=== PATIENT | female | born 1990 | race Caucasian/White ===

== ENCOUNTER 2020-10-25 15:00 | Outpatient (REF) | payer MEDICAID, SELFPAY | END 2020-10-25 15:01 | disposition home or self-care (01) | LOC: HO.LAB 15:00 | PROVIDERS: Visit Provider Nurse Practitioner Family | DX: R50.9 Fever, unspecified (principal); R10.9 Unspecified abdominal pain; Z20.822 Contact with and (suspected) exposure to COVID-19 | CPT/HCPCS: 36415; U0003; U0005 ==

== ENCOUNTER 2023-05-17 15:40 | Outpatient (AMB) | payer OTHER, SELFPAY ==
[2023-05-17 16:16] VITALS: BP 122/70; PULSE 103; TEMP 37.2; O2SAT 96; BMI 24.5
--- NOTE | 2023-05-17 16:16 | MHC.OFFWIV ---
Intake Vital Signs 05/17/23 16:16 Height 5 ft 9 in Weight 166 lb BMI 24.5 BP 122/70 Blood Pressure Location Rt brachial Position Sitting Pulse 103 H Pulse Source Pulse Oximeter Temp 99.0 F Temp Source Temporal Artery Scan Pulse Oximetry (%) 96 Oxygen Delivery Method Room Air Intake Visit Reasons: EP ?UTI Intake Note: pt is here for c/o possible uti Patient Tobacco Use Status: Never used Tobacco Allergies Sulfa (Sulfonamide Antibiotics) Allergy (Mild, Verified 05/17/23 16:16) mild Do you need a note to return to daycare/school/sports/work: Yes HPI HPI Comments History of Present Illness Details 33-year-old female who presents for concern of UTI/pyelonephritis. Patient was recently in the hospital for surgery for her jaw pain and found out that she had a positive urine culture for strep B. She is endorsing back painwell as GI distress in chills. Does have a history of IVDU but urinary incontinence or inability to have a bowel movement saddle anesthesia midline tenderness. PFSH Social History Patient Tobacco Use Status: Never used Tobacco Review of Systems [facility] [place] pain Physical Exam Vital Signs: Last Vital Signs Temp 99.0 F 05/17/23 16:16 Pulse 103 H 05/17/23 16:16 BP 122/70 05/17/23 16:16 Pulse Ox 96 05/17/23 16:16 Oxygen Delivery Method Room Air 05/17/23 16:16 BMI result Body Mass Index 24.5 Const General: healthy appearing, comfortable, no acute distress and alert Orientation/consciousness: patient oriented x3 Limitations: no limitations HEENT Head: Yes normal to inspection Ears: hearing grossly normal bilaterally Resp Effort & Inspection: normal respiratory effort and able to speak in complete sentences Cardio Rate: regular rate Back/Spine/Pelvis Other: Mild CVA tenderness Skin General skin exam: no rashes or lesions noted Neuro General: patient oriented x3 Extrem General: Yes normal to inspection Results AMB Urinalysis, Automated UA Leukoctes 0 Heather/uL Last Edit by Abraham Palmer CMA on 05/17/23 16:23 UA Nitrite Negative Last Edit by Abraham Palmer CMA on 05/17/23 16:23 UA Urobilinogen 0.2 mg/dL Last Edit by Abraham Palmer CMA on 05/17/23 16:23 UA Protein 15 mg/dL Last Edit by Abraham Palemr CMA on 05/17/23 16:23 UA pH 5.5 Last Edit by Abraham Palmer CMA on 05/17/23 16:23 UA Blood 25 Jamie/uL Last Edit by Abraham Palmer CMA on 05/17/23 16:23 UA Specific [place] 1.030 Last Edit by Abraham Palmer CMA on 05/17/23 16:23 UA Ketone Negative Last Edit by Abraham Palmer CMA on 05/17/23 16:23 UA Bilirubin 0 mg/dL Last Edit by Abraham Palmer CMA on 05/17/23 16:23 UA Glucose 0 mg/dL Last Edit by Abraham Palmer CMA on 05/17/23 16:23 Results Reviewed Results Reviewed: Laboratory Last Values Urine pH (Auto) 5.5 05/17/23 16:21 Specific [place] (Auto) 1.030 05/17/23 16:21 Urine Protein (Auto) 15 mg/dL 05/17/23 16:21 Glucose (UA)(Auto) 0 mg/dL 05/17/23 16:21 Urine Ketones (Auto) Negative 05/17/23 16:21 Urine Blood (Auto) 25 Jamie/uL 05/17/23 16:21 Urine Nitrite (Auto) Negative 05/17/23 16:21 Urine Bilirubin (Auto) 0 mg/dL 05/17/23 16:21 Urine Urobilinogen (Auto) 0.2 mg/dL 05/17/23 16:21 Leukocyte Esterase (Auto) 0 Heather/uL 05/17/23 16:21 Assessment & Plan Assessment & Plan (1) Flank pain: Code(s): R10.9 - Unspecified abdominal pain Plan: Given patient being days of concern is pyelonephritis analysis showed no white cells. However in the setting of group B positive urine culture with chills and flank tenderness wound. The treat for pyelonephritis. Low suspicion at this time for epidural abscess given no midline tenderness to palpation the other findings on examination. However strong recommendations were made to the patient that if symptoms worsen or change she should present to the emergency department for further evaluation Discharge instructions, follow up and treatment are discussed with patient in my usual fashion. Alternatives in treatment are also discussed. The patient will return for worsening symptoms or as needed. Advised that any labs/imaging ordered will be followed up on and contact made if further treatment needed. Counseled that patient's condition may require further evaluation and/or treatment. Symptoms of concern for worsening disorder discussed in detail in my customary manner. Patient does verbalize understanding of the plan, there are no apparent barriers to communication. The patient is given the opportunity to ask questions and have them answered to his/her satisfaction Orders: Orders AMB Urinalysis Automated Today Z13.9 - Encounter for screening, unspecified Medications: New cefpodoxime must administer with a meal/food 200 mg PO BID 10 days 20 tabs 0RF ibuprofen 800 mg PO Q8H PRN 30 tabs 0RF pain Coding Level of Care Code Est Pt Level 3 (20635) Diagnoses Flank pain R10.9
== END 2023-05-17 16:50 | disposition home or self-care (01) ==
PROVIDERS: PCP Nurse Practitioner Family; Visit Provider Physician Assistant
DX: R10.9 Unspecified abdominal pain (principal)
CPT/HCPCS: 81003; 99213

== ENCOUNTER 2024-08-19 10:32 | Inpatient (IN) | payer OTHER, SELFPAY ==
[2024-08-19 10:56] VITALS: BP 144/90; PULSE 74; RESP 20; TEMP 36.4; O2SAT 99; BMI 26.3
--- NOTE | 2024-08-19 11:09 | MHC.RECOVRN ---
T/w met with pt in the [facility] and escorted pt to the ED for assistance with alcohol withdrawl. Pt had presented to the [facility] as a walk in for assistance with ATS. Pt was referred to the [facility] from [facility]. Pt had presented to [facility] to attend their PHP program but was informed she needed to complete ATS prior to starting. Pt reports alcohol use, 20 nips bourbon daily x 1.5 weeks; cocaine use, last use last week. Pt reports recovery from opioids since May 19, 2016. Last alcohol use was this morning. Pt reports mental health diagnoses are bipolar disorder, PTSD, and ADHD. Pt has an emotional support animal that she would like to take to treatment with her. Pt would like to go to [facility], however, [facility] reports pt has left their facility AMA x 3 recently and can not return until November 2024. Pt open to [facility], however, [facility] has a waitlist. Upon further discussion, pt reports history of seizures and hypertension with alcohol withdrawal. Pt reports last seizure was 3 days ago. Discussed safety regarding alcohol withdrawal. Pt decided she would like to go to the ED with a goal of a medical admission for alcohol withdrawal. T/w escorted pt to ED check in.
[2024-08-19 11:53] LABS: Basophils Absolute Auto 0.1 X10*3/uL (0.0-0.2); Basophils Percent Auto 1.3 % (0-2); Eosinophils Absolute Auto 0.4 X10*3/uL (0.0-0.4); Eosinophils Percent Auto 6.1 % (0-4); Hematocrit 36.6 % (37.0-47.0); Hemoglobin 11.2 g/dl (12.0-16.0); Imm Gran Abs Auto 0.02 X10*3/uL (0.00-0.03); Imm Gran Pct Auto 0.3 % (0.0-0.4); Lymphocytes Absolute Auto 1.7 X10*3/uL (1.2-4.9); Lymphocytes Percent Auto 24.7 % (20-40); MANUAL DIFF FLAG NO; Mean Corpuscular HGB Conc 30.6 g/dl (31.0-35.0); Mean Corpuscular Hemoglobin 24.1 pg (27.0-33.0); Mean Corpuscular Volume 78.7 fL (80.0-98.0); Mean Platelet Volume 9.3 fL (9.4-12.3); Monocytes Absolute Auto 0.5 X10*3/uL (0.1-1.2); Monocytes Percent Auto 7.3 % (2-11); Neutrophils Absolute Auto 4.1 x10*3/uL (2.0-8.3); Neutrophils Percent Auto 60.3 % (45-73); Platelet Count 270 X10*3/uL (160-400); Red Blood Count 4.65 X10*6/uL (4.20-5.50); Red Cell Distribution Width 18.4 % (11.0-16.0); White Blood Count 6.7 X10*3/uL (4.8-10.8)
--- NOTE | 2024-08-19 12:15 | ED_ITS ---
HPI - General Adult General Chief complaint: ETOH/Substance Use Stated complaint: Alcohol withdrawal Time Seen by Provider: 08/19/24 11:57 Source: patient Mode of arrival: ambulatory Limitations: no limitations History of Present Illness ED Provider: DR. Montano HPI narrative: 34-year-old female history of alcohol use the patient drink every day, patient also is known to have history of withdrawal seizure, patient is trying to stop drinking alcohol had seizure 2 days ago, patient is afraid of developing another seizure so she drank alcohol this morning patient is really seeking detox and rehab. Patient smells orange before the seizure was able to put herself on the floor before the seizure and declined having any injury or fall after the seizure. Related Data Previous Rx's ?Medication ?Instructions ?Recorded cefpodoxime 200 mg tablet 200 mg PO BID 10 days #20 tabs 05/17/23 ibuprofen 800 mg tablet 800 mg PO Q8H PRN pain #30 tabs 05/17/23 Allergies Allergy/AdvReac Type Severity Reaction Status Date / Time Sulfa (Sulfonamide Allergy Mild mild Verified 08/19/24 10:58 Antibiotics) Review of Systems 2 Review of Systems: All other systems are reviewed and are negative Constitutional: Reports as per HPI and Reports no additional constitutional complaints Eyes: Reports as per HPI and Reports no additional eye complaints Reports system reviewed and no additional complaints, except as documented Cardiovascular: Reports as per HPI and Reports no additional cardiovascular complaints Respiratory: Reports as per HPI and Reports no additional respiratory complaints Gastrointestinal: Reports as per HPI and Reports no additional gastrointestinal complaints Genitourinary: Reports no additional female genitourinary complaints Musculoskeletal: Reports no additional musculoskeletal complaints Skin/Breast: Reports system reviewed and no additional complaints, except as docu Psychiatric: Reports no additional psychiatric complaints Endocrine: Reports no additional endocrine complaints Hematologic/Lymphatic: Reports no additional hematologic/lymphatic complaints Allergic/Immunologic: Reports no additional allergic/immunologic complaints Reports system reviewed and no additional complaints, except as documented and Reports Abnormal speech present [facility] Social History Social History Patient Tobacco Use Status: Never used Tobacco Advance Directives: No Advance Directives Information Provided: Yes Physical Exam ED Vital Signs: Vital Signs - 24 hr 08/19/24 10:56 Temperature 97.5 F Pulse Rate 74 Respiratory Rate 20 Blood Pressure 144/90 H Pulse Oximetry 99 Oxygen Delivery Method Room Air BMI result Body Mass Index 26.3 Vital signs have been reviewed and appear to be correct. Blood pressure elevated. Heart rate normal. Respiratory rate normal. Temperature normal. Oxygen saturation normal. Appearance: Alert. Oriented X3. No acute distress. Head: Normal external exam. Normocephalic. Atraumatic. No Llamas signs noted. No raccoon eyes noted Eyes: PERRLA. EOMI. Conjunctiva and sclera normal. Eyelids normal. ENT: TM's Normal. Pharynx normal. Uvula midline. Moist mucous membranes. No trismus noted. No drooling noted. No muffled voice noted. Neck: Normal inspection. Neck supple. FROM. No adenopathy. Thyroid Normal. No meningeal signs. No neck mass noted. CVS: Normal heart rate and rhythm. Heart sound normal. No murmurs noted. Pulses normal throughout. Respiratory: No respiratory distress. Painless inspiration. Breath sounds normal. No wheezes/rales/rhonchi noted. Chest nontender. No accessory muscle usage noted or decreased air movement noted. Abdomen: Soft and nontender. Bowel sounds normal in all 4 quadrants. No distention noted. No organomegaly noted. No visible injury noted. Back: No CVA tenderness. Full range of motion noted. Skin: Skin warm and dry. Normal skin color. Normal skin turgor. No rashes/lesions/lacerations noted. Extremities: No lower extremity edema. Extremities exhibit normal range of motion. Extremities nontender. Neuro: Oriented X 3. Cranial nerve exam: II-XII are grossly intact No motor deficit. No sensory deficit. Reflexes normal. Course Reevaluation(s) Reevaluation #1: 34-year-old female with a longstanding history of chronic alcohol use and alcoholic withdrawal seizure. Patient still seeking detox had to drink alcohol this morning to prevent seizure, will start the patient on phenobarb and admit for alcohol withdrawal. Time: 12:18 Medical Decision Making Differential Diagnosis Differential Diagnoses: The differential diagnosis associated with the presentation includes (Alcohol withdrawal seizure, electrolyte derangement, severe anemia.) Admission/Observation Consideration of admission/observation: Escalation of care including admission/observation considered Consult Healthcare Provider Management of the patient was discussed with: Hospitalist (Dr. Rock) Lab Data MDM Lab Attestation statement: I reviewed the patient's lab results. 08/19/24 11:46 08/19/24 11:46 Labs: Lab Results 08/19/24 Range/Units 11:46 WBC 6.7 (4.8-10.8) X10*3/uL RBC 4.65 (4.20-5.50) X10*6/uL Hgb 11.2 L (12.0-16.0) g/dl Hct 36.6 L (37.0-47.0) % MCV 78.7 L (80.0-98.0) fL MCH 24.1 L (27.0-33.0) pg MCHC 30.6 L (31.0-35.0) g/dl RDW 18.4 H (11.0-16.0) % Plt Count 270 (160-400) X10*3/uL MPV 9.3 L (9.4-12.3) fL Immature Gran % (Auto) 0.3 (0.0-0.4) % Neut % (Auto) 60.3 (45-73) % Lymph % (Auto) 24.7 (20-40) % [place] % (Auto) 7.3 (2-11) % Eos % (Auto) 6.1 H (0-4) % Baso % (Auto) 1.3 (0-2) % Lymph # (Auto) 1.7 (1.2-4.9) X10*3/uL [place] # (Auto) 0.5 (0.1-1.2) X10*3/uL Eos # (Auto) 0.4 (0.0-0.4) X10*3/uL Baso # (Auto) 0.1 (0.0-0.2) X10*3/uL Abs Immat Gran (auto) 0.02 (0.00-0.03) X10*3/uL Absolute Neuts (auto) 4.1 (2.0-8.3) x10*3/uL Absolute Nucleated RBC 0.000 (0.0-0.012) X10*3/uL Nucleated RBC % (auto) 0.0 (0.0-0.2) /100WBC Discharge Plan Discharge Clinical Impression: Alcohol withdrawal syndrome, Alcohol withdrawal seizure Patient Disposition: Admitted As Inpatient Prescriptions: No Action cefpodoxime 200 mg tablet 200 mg PO BID 10 Days Qty: 20 0RF Rx Instructions: must administer with a meal/food ibuprofen 800 mg tablet 800 mg PO Q8H PRN (Reason: pain) Qty: 30 0RF Print Language: Kiswahili
[2024-08-19 12:20] LABS: Alanine Aminotransferase 20 U/L (0-31); Albumin Level 4.2 g/dL (3.5-5.0); Alkaline Phosphatase 66 U/L (39-117); Anion Gap 11 (12-20); Aspartate Amino Transferase 37 U/L (5-31); Bilirubin Total 0.3 mg/dL (0.0-1.0); Blood Urea Nitrogen 10 mg/dL (9-16); Carbon Dioxide 29 mmol/L (22-29); Chloride 106 mmol/L (96-108); Creatinine Clr Calc Pharmacy 113.3; Estimated Glomerular Filt Rate > 60; Ethanol 153 mg/dL; Glucose Random 113 mg/dL (60-115); Potassium 4.9 mmol/L (3.3-5.1); Sodium 141 mmol/L (135-145); Total Protein 7.7 g/dL (6.5-8.0)
[2024-08-19 12:33] LABS: Appearance Urine Clear; Color Urine Yellow; Glucose Urine UA Negative (Negative); Leukocyte Esterase Urine Negative (Negative); Nitrite Urine Negative (Negative); Specific Gravity - Urine <= 1.005 (1.005-1.025); Urine Blood Negative (Negative); Urine Ketones Negative (Negative); Urine Protein Negative (Neg-Trace)
[2024-08-19 12:57] LABS: Lipase 48 U/L (8-78)
[2024-08-19 13:02] LABS: HCG Quantitative < 2 mIU/mL
--- NOTE | 2024-08-19 13:16 | PHA.MEDREC ---
Pharmacy Consult ? Medication Reconciliation Pharmacy has completed the medication reconciliation. Spoke to patient to confirm med list. Patient was able to tell me what medications she takes. Everything the patient said matched claims. patient states she uses and Albuteral HFA inhaler only as need, however didn't see a claim for it.
[2024-08-19] MEDS: PHENobarbitaL sodium 130 MG/ML IM ONCE 268 MG IM (13:22)
[2024-08-19 13:23] VITALS: BP 136/91; PULSE 83; RESP 20; O2SAT 97
[2024-08-19] MEDS: Lactated Ringers 1,000 ML 100 ML IVCONT (14:31)
[2024-08-19] MEDS: Enoxaparin Sodium 40 MG/0.4 ML SYRINGE SUBCUT (14:35)
--- NOTE | 2024-08-19 14:36 | P.HPHOSP_ITS ---
History of Present Illness Date of Service: 08/19/24 Attending physician on admission: Mandy Montes Chief Complaint: Alcohol withdrawal syndrome, with hx of seizures 34 yo female with past medical history of alcohol use disorder with a hx of withdrawal seizures. States that 3 days ago she had attempted to quit drinking cold turkey but experienced what she believes to be a seizure- states she felt different and lowered herself down and then suddenly she came to - she thinks it was under 5 minutes. She endorses having auras historically which vary including a metallic taste and a kaleidoscope-like visual. She reports her last drink was this 9am (3 nips of Rell Beam) which she took with a rx. clonidine pill prior to coming in to the ED. She comes to the ED with a plan to withdraw inpatient. States she has contacts within the community who are willing to support rehabilitation however she must be outside of the acute withdrawal phase and any chance of seizing from said withdrawal. She has been drinking since 2019, increasingly getting worse over the last 2 years. Reports she drinks 2 sleeves of nips (spirits) daily, as well as intermittent cocaine use when offered or available, and vapes tobacco. Denies auras at present, has a baseline tremor present no additional shaking is reported, denies N/V/D, headache, anxiety, or depression (is sick of having nothing to live for but alcohol and wants to stop). Review of Systems 2 Review of Systems: Reports possible weight gain. Denies fever, chills, N/V/D,changes to sleep. Eyes: Comments: Denies changes to vision at present ENT: Comments: Denies headache, changes to hearing, vertigo, congestion, rhinorrhea, or sore throat Cardiovascular: Comments: Denies palpitations, lightheadedness, diaphoresis, orthopnea, edema, or CP Respiratory: Comments: Denies cough, sputum, hemoptysis, dyspnea, wheeze, or pleuritic pain Gastrointestinal: Comments: Denies N/V/D, denies bowel changes, changes to appetite, and any bleeding Endorses chronic constipation Genitourinary: Comments: Denies any difficulties, frequency, urgency, retention, burning, or hematuria Endorses foul smell, and white discharge Musculoskeletal: Comments: Denies any recent falls, changes in gait Endorses chronic flank pain (when dehydrated) Integumentary/Breasts: Comments: Denies any rashes, itching, dryness, color changes, wounds Neurologic: Comments: Endorses seizures with withdrawal, slight baseline tremor Denies dizziness, syncope/fainting, numbness/tingling Psychiatric: Comments: Denies any changes or difficutlies with memory Endorses hx of anxiety/depression related to substance use (ETOH) Endocrine: Comments: Denies temperature intolerances, sweating, polyuria/dipsia, or bleeding PMFSH Social History Alcohol intake: current Alcohol intake frequency: 0-2 drinks per day Alcohol type: hard liquor Patient Tobacco Use Status: Never used Tobacco Smoked in Last 30 Days: Yes Use of substances other than those prescribed or required for medical reasons: Yes Substance Use Type: Crack/Cocaine Substance Use Frequency: Occasionally Advance Directives: No Advance Directives Information Provided: Yes Nutrition Risks: No Nutritional Risk Patient : No Meds Allergies Allergy/AdvReac Type Severity Reaction Status Date / Time Sulfa (Sulfonamide Allergy Mild mild Verified 08/19/24 10:58 Antibiotics) Active Medications: Current Medications Acetaminophen (Acetaminophen 325 Mg Tablet) 650 mg PO Q6H PRN PRN Reason: Pain, Mild 1-3,fever,headache Calcium Carbonate (Calcium Carbonate 750 Mg Tab.Chew) 750 mg PO Q4H PRN PRN Reason: Heartburn Enoxaparin Sodium (Enoxaparin Sodium 40 Mg/0.4 Ml Syringe) 40 mg SUBCUT Q24H [facility] Last Admin: 08/19/24 14:35 Dose: 40 mg Lactated Ringer's (Lr) 1,000 mls @ 100 mls/hr IVCONT .Q10H [facility] Last Admin: 08/19/24 14:31 Dose: 100 mls/hr Magnesium Hydroxide (Milk Of Magnesia 30 Ml Oral.Susp) 30 ml PO DAILY PRN PRN Reason: Constipation Melatonin (Melatonin 3 Mg Tablet) 6 mg PO BEDTIME PRN PRN Reason: Insomnia Nicotine Polacrilex (Nicotine Polacrilex 2 Mg Gum) 2 mg BUCCAL Q1H PRN PRN Reason: Nicotine Cravings Pharmacy Consult (Consult Rx Etoh Phenob Im/Po) 1 each MISCELLANE ONCE PRN; Protocol PRN Reason: Consult order Phenobarbital (Phenobarbital 15 Mg Tablet) 45 mg PO BID [facility]; Protocol Stop: 08/21/24 21:01 Phenobarbital (Phenobarbital 30 Mg Tablet) 30 mg PO BID [facility]; Protocol Stop: 08/23/24 21:01 Phenobarbital (Phenobarbital 30 Mg Tablet) 30 mg PO DAILY [facility]; Protocol Stop: 08/25/24 09:01 Phenobarbital Sodium (Phenobarbital Sodium 130 Mg/Ml Vial Im Q3hx2) 201 mg IM Q3H [facility]; Protocol Stop: 08/19/24 19:01 Sodium Chloride (0.9 % Sodium Chloride Flush 3 Ml Syringe) 3 ml IVFLUSH QSHIFT [facility] Home Medications ?Medication ?Instructions ?Recorded ?Confirmed ?Last Taken ?Type acetaminophen 325 mg tablet 650 mg PO Q6H PRN Pain 08/19/24 08/19/24 Unknown History albuterol sulfate 90 mcg/actuation 2 puff inhalation Q4-6H PRN 08/19/24 08/19/24 Unknown History aerosol inhaler Respiratory Distress ascorbic acid (vitamin C) 500 mg 500 mg PO DAILY 08/19/24 08/19/24 08/19/24 History tablet (Vitamin C) clonidine HCl 0.1 mg tablet 0.1 mg PO DAILY 08/19/24 08/19/24 08/19/24 History multivitamin 1 tab PO DAILY 08/19/24 08/19/24 08/19/24 History naltrexone 50 mg tablet 50 mg PO DAILY 08/19/24 08/19/24 08/19/24 History quetiapine 50 mg tablet 50 mg PO BEDTIME 08/19/24 08/19/24 08/18/24 History vitamin B complex 1 tab PO DAILY 08/19/24 08/19/24 08/19/24 History Physical Exam 2 Vital Signs and Narrative: Vital Signs: Last Vital Signs Temp 97.5 F 08/19/24 10:56 Pulse 83 08/19/24 13:23 Resp 20 08/19/24 13:23 BP 136/91 H 08/19/24 13:23 Pulse Ox 97 08/19/24 13:23 O2 Del Method Room Air 08/19/24 13:23 BMI result Body Mass Index 26.3 Const: General: cooperative, healthy appearing, comfortable, no acute distress, alert and awake Nutritional Appearance: overweight O rientation/consciousness: patient oriented x3 Limitations: no limitations HEENT: Head: Yes normal to inspection Ears: hearing grossly normal bilaterally General nose exam: Normal external nose present Face and sinus: Yes normal facial exam Eyes: General: appearance normal, both eyes and all related structures P upils: Equal, round and reactive pupils present EOM: EOMs intact bilaterally Neck: Yes normal visual inspection and Yes full ROM Resp: Effort & Inspection: normal respiratory effort and able to speak in complete sentences Auscultation: clear to auscultation bilaterally Cardio: Jugular venous distension: no JVD Rate: regular rate Rhythm: r egular rhythm GI: Inspection: Yes normal to inspection Percussion: Yes normal to percussion Auscultation: normal bowel sounds : General: Yes no CVA tenderness Back/Spine/Pelvis: Back: no CVA tenderness Thoracic/Lumbar Spine: thoraco- lumbar ROM normal Skin: General skin exam: no rashes or lesions noted Neuro: General: patient oriented x3 Cranial nerves: Yes CN's II-XII intact bilaterally and Yes Equal, round and reactive pupils present Motor exam (neuro): 5/5 motor strength present throughout Extrem: General: Yes normal to inspection and Yes full ROM Psych: Appearance: grossly normal Mental Status: mental status grossly normal Results Labs 08/19/24 11:46 08/19/24 11:46 Labs: Laboratory Results - last 24 hr 08/19/24 08/19/24 11:46 12:22 MCV 78.7 L MCH 24.1 L MCHC 30.6 L RDW 18.4 H Plt Count 270 MPV 9.3 L Immature Gran % (Auto) 0.3 Neut % (Auto) 60.3 Lymph % (Auto) 24.7 [place] % (Auto) 7.3 Eos % (Auto) 6.1 H Baso % (Auto) 1.3 Lymph # (Auto) 1.7 [place] # (Auto) 0.5 Eos # (Auto) 0.4 Baso # (Auto) 0.1 Abs Immat Gran (auto) 0.02 Absolute Neuts (auto) 4.1 Absolute Nucleated RBC 0.000 Nucleated RBC % (auto) 0.0 Anion Gap 11 L Estim Creat Clear Calc 113.3 Estimated GFR > 60 Random Glucose 113 Calcium 9.0 Total Bilirubin 0.3 AST 37 H ALT 20 Alkaline Phosphatase 66 Total Protein 7.7 Albumin 4.2 Lipase 48 Beta HCG, Quant < 2 Urine Color Yellow Urine Appearance Clear Urine pH 7.0 Ur Specific [place] <= 1.005 Urine Protein Negative Urine Glucose (UA) Negative Urine Ketones Negative Urine Blood Negative Urine Nitrite Negative Ur Leukocyte Esterase Negative Ethyl Alcohol 153 Assessment and Plan (1) Alcohol withdrawal syndrome: Status: Acute (2) Alcohol withdrawal seizure: Status: Acute Plan 34 yo female with past medical history of alcohol use disorder with a hx of withdrawal seizures. States that 3 days ago she had attempted to quit drinking cold turkey but experienced a seizure. She comes to the ED with a desire for inpatient support to withdraw. ETOH withdrawal with hx of seizures Seizure precautions Phenobarb protocol, initiated in the ED Addiction med consult appreciated IV fluids encourage oral intake Encourage cessation Mental health Continue home medications Tobacco use disorder, vape NRT buccal gum ordered DVT prophylaxis with Lovenox Full code Quality Stroke Does the patient have a stroke diagnosis?: No VTE Prior VTE?: No VTE Risk Level:: Medical - moderate - high VTE Device Contraindication: Treatment Not Indicated VTE Drug Contraindication: N/A - Med Ordered
[2024-08-19] MEDS: Nicotine Polacrilex 2 MG GUM BUCCAL (14:38)
[2024-08-19 14:52] LABS: Magnesium 2.1 mg/dL (1.6-2.6)
[2024-08-19 17:15] VITALS: BP 138/93; PULSE 91; RESP 17; O2SAT 99
[2024-08-19] MEDS: PHENobarbitaL sodium 130 MG/ML VIAL IM Q3Hx2 201 MG IM ×2 (17:18→20:16)
[2024-08-19] MEDS: Acetaminophen 325 MG TABLET 650 MG PO (17:21)
[2024-08-19 19:45] VITALS: BP 135/90; PULSE 79; RESP 17; TEMP 36.6; O2SAT 99
--- NOTE | 2024-08-19 20:18 | MHC.EDTECH ---
This tech took over care of pt at 1900,rounded and introduced self to pt,vitals taken,patient ate 100% of dinner,drank 360MLS, pt given a pitcher of ice water,with 3 cans of anton chiquita,patient appears comfortable,boyfriend at bedside,call madden in reach
[2024-08-19 23:34] VITALS: BP 133/83; PULSE 69; RESP 15; TEMP 36.6; O2SAT 97
--- NOTE | 2024-08-19 23:35 | MHC.EDTECH ---
Rounds and vitals completed,patient is resting quietly,pillow given,call madden in reach
[2024-08-20] MEDS: Lactated Ringers 1,000 ML 100 ML IVCONT ×2 (00:27→10:03)
--- NOTE | 2024-08-20 00:52 | PC.NURSE ---
Took over care from SONAL Shin at 23:00, pt sleeping no sign of distress at this time.
--- NOTE | 2024-08-20 02:08 | PC.NURSE ---
No sign of distress or discomfort, pt request warm blanket , pt going back to sleep.
[2024-08-20 03:53] VITALS: BP 128/77; PULSE 68; RESP 18; TEMP 36.5; O2SAT 98
--- NOTE | 2024-08-20 03:57 | MHC.EDTECH ---
Rounds and vitals completed,patient placed in hospital bed for comfort,patient drank 480MLS of gingerale ,call madden in reach
--- NOTE | 2024-08-20 04:05 | PC.NURSE ---
pt transitioned into hospital bed by tech to promote comfort. seizure pads remain in place at this time. updated CIWA = 0. pt continues to rest in no apparent distress w/ the lights dimmed. on RA w/o difficulty - no sob/wob noted. respirations even/unlabored. pt pending bed assignment at this time. plan of care ongoing. call madden placed within reach.
[2024-08-20 04:24] LABS: MANUAL DIFF FLAG NO
[2024-08-20 04:26] LABS: Basophils Absolute Auto 0.1 X10*3/uL (0.0-0.2); Basophils Percent Auto 1.5 % (0-2); Eosinophils Absolute Auto 0.5 X10*3/uL (0.0-0.4); Eosinophils Percent Auto 8.3 % (0-4); Hematocrit 31.9 % (37.0-47.0); Hemoglobin 10.1 g/dl (12.0-16.0); Imm Gran Abs Auto 0.01 X10*3/uL (0.00-0.03); Imm Gran Pct Auto 0.2 % (0.0-0.4); Lymphocytes Absolute Auto 1.9 X10*3/uL (1.2-4.9); Lymphocytes Percent Auto 33.9 % (20-40); Mean Corpuscular HGB Conc 31.7 g/dl (31.0-35.0); Mean Corpuscular Hemoglobin 24.5 pg (27.0-33.0); Mean Corpuscular Volume 77.2 fL (80.0-98.0); Mean Platelet Volume 9.6 fL (9.4-12.3); Monocytes Absolute Auto 0.5 X10*3/uL (0.1-1.2); Monocytes Percent Auto 9.7 % (2-11); Neutrophils Absolute Auto 2.5 x10*3/uL (2.0-8.3); Neutrophils Percent Auto 46.4 % (45-73); Platelet Count 234 X10*3/uL (160-400); Red Blood Count 4.13 X10*6/uL (4.20-5.50); White Blood Count 5.5 X10*3/uL (4.8-10.8)
--- NOTE | 2024-08-20 04:28 | PC.NURSE ---
pt requesting seroquel and clonidine at this time. per pt notes, med rec was completed by pharmacy during the day yesterday. home medications not continued MD. admitting provider notified/aware of pt's request. will administer medications when able/once verified.
[2024-08-20] MEDS: cloNIDine HCL 0.1 MG TABLET PO (04:47)
[2024-08-20] MEDS: QUEtiapine Fumarate 50 MG TABLET PO (04:47)
--- NOTE | 2024-08-20 04:49 | PC.NURSE ---
medication verified by pharmacy/administered. pt offers no other complaints at this time.
[2024-08-20 04:59] LABS: Alanine Aminotransferase 14 U/L (0-31); Albumin Level 3.2 g/dL (3.5-5.0); Alkaline Phosphatase 59 U/L (39-117); Anion Gap 11 (12-20); Aspartate Amino Transferase 35 U/L (5-31); Bilirubin Total 0.2 mg/dL (0.0-1.0); Blood Urea Nitrogen 10 mg/dL (9-16); Calcium 8.2 mg/dL (8.4-10.2); Carbon Dioxide 23 mmol/L (22-29); Chloride 106 mmol/L (96-108); Estimated Glomerular Filt Rate > 60; Glucose Random 130 mg/dL (60-115); Magnesium 1.7 mg/dL (1.6-2.6); Potassium 4.1 mmol/L (3.3-5.1); Sodium 136 mmol/L (135-145); Total Protein 6.3 g/dL (6.5-8.0)
[2024-08-20] MEDS: Multivitamin TABLET 1 TAB PO (08:30)
[2024-08-20] MEDS: Ascorbic Acid 500 MG TABLET PO (08:30)
[2024-08-20] MEDS: PHENobarbitaL 15 MG TABLET 45 MG PO (08:30)
[2024-08-20 08:34] VITALS: BP 105/62; PULSE 67; RESP 16; TEMP 36.4; O2SAT 99
--- NOTE | 2024-08-20 08:48 | PC.NURSE ---
updated CIWA = 1 at this time. no interventions needed. pt offers no complaints at this time - stating, i'm feeling much better today. medication administered per provider order. pt remains in no apparent distress. no sob/wob noted. respirations remain even/unlabored. plan of care ongoing.
--- NOTE | 2024-08-20 09:26 | MHC.CM.PN ---
CM met with Patient at bedside in the ED. Patient lives in an apartment with her Mother and she is functionally independent. Home/self care vs Recovery Team intervention is Patient's tentative plan/goal and CM has initiated and will follow for dc planning. PCP is Dr. Mary Serrano and Patient's Boyfriend will transport to home.
[2024-08-20 11:39] VITALS: BMI 26.3
--- NOTE | 2024-08-20 12:01 | HO.PM.IMPN ---
Subjective Subjective Date of Service: 08/20/24 Review of Systems Follow up alcohol withdrawal seizure Physical Exam Vital Signs: Vital Signs: Last Vital Signs Temp 97.6 F 08/20/24 08:34 Pulse 67 08/20/24 08:34 Resp 16 08/20/24 08:34 BP 105/62 08/20/24 08:34 Pulse Ox 99 08/20/24 08:34 O2 Del Method Room Air 08/20/24 08:34 BMI result Body Mass Index 26.3 Appearing in no acute distress head is normocephalic atraumatic eyes pupils are PERRLA sclera is anicteric mouth throat mucous membranes are intact and moist neck is supple no lymphadenopathy, no JVD noted lung sounds are clear to auscultation heart regular rate rhythm, clear S1, S2 positive bowel sounds, abdomen is soft, nontender neuro patient is alert x3, no focal deficits Objective Data Active Medications Acetaminophen (Acetaminophen 325 Mg Tablet) 650 mg PO Q6H PRN PRN Reason: Pain, Mild 1-3,fever,headache Last Admin: 08/19/24 17:21 Dose: 650 mg Documented By: YUE Albuterol Sulfate (Albuterol Sulfate 90 Mcg 8 Gm Inhaler) 2 puff INHALE Q4H PRN PRN Reason: Respiratory Distress Ascorbic Acid (Ascorbic Acid 500 Mg Tablet) 500 mg PO DAILY [facility] Last Admin: 08/20/24 08:30 Dose: 500 mg Documented By: KIM Calcium Carbonate (Calcium Carbonate 750 Mg Tab.Chew) 750 mg PO Q4H PRN PRN Reason: Heartburn Enoxaparin Sodium (Enoxaparin Sodium 40 Mg/0.4 Ml Syringe) 40 mg SUBCUT Q24H [facility] Last Admin: 08/19/24 14:35 Dose: 40 mg Documented By: YUE Lactated Ringer's (Lr) 1,000 mls @ 100 mls/hr IVCONT .Q10H [facility] Last Admin: 08/20/24 10:03 Dose: 100 mls/hr Documented By: KIM Magnesium Hydroxide (Milk Of Magnesia 30 Ml Oral.Susp) 30 ml PO DAILY PRN PRN Reason: Constipation Melatonin (Melatonin 3 Mg Tablet) 6 mg PO BEDTIME PRN PRN Reason: Insomnia Multivitamins/Vitamin C (Multivitamin Tablet) 1 tab PO DAILY [facility] Last Admin: 08/20/24 08:30 Dose: 1 tab Documented By: KMI Nicotine Polacrilex (Nicotine Polacrilex 2 Mg Gum) 2 mg BUCCAL Q1H PRN PRN Reason: Nicotine Cravings Last Admin: 08/19/24 14:38 Dose: 2 mg Documented By: YUE Pharmacy Consult (Consult Rx Etoh Phenob Im/Po) 1 each MISCELLANE ONCE PRN; Protocol PRN Reason: Consult order Phenobarbital (Phenobarbital 15 Mg Tablet) 45 mg PO BID [facility]; Protocol Stop: 08/21/24 21:01 Last Admin: 08/20/24 08:30 Dose: 45 mg Documented By: KIM Phenobarbital (Phenobarbital 30 Mg Tablet) 30 mg PO BID [facility]; Protocol Stop: 08/23/24 21:01 Phenobarbital (Phenobarbital 30 Mg Tablet) 30 mg PO DAILY [facility]; Protocol Stop: 08/25/24 09:01 Quetiapine Fumarate (Quetiapine Fumarate 50 Mg Tablet) 50 mg PO BEDTIME [facility] Sodium Chloride (0.9 % Sodium Chloride Flush 3 Ml Syringe) 3 ml IVFLUSH QSHIFT [facility] Last Admin: 08/20/24 07:35 Dose: Not Given Documented By: KIM Non-Admin Reason: Patient Asleep Labs 08/20/24 04:20 08/20/24 04:20 Labs: Laboratory Results - last 24 hr 08/19/24 08/19/24 08/20/24 11:46 12:22 04:20 MCV 77.2 L MCH 24.5 L MCHC 31.7 RDW 18.0 H Plt Count 234 MPV 9.6 Immature Gran % (Auto) 0.2 Neut % (Auto) 46.4 Lymph % (Auto) 33.9 [place] % (Auto) 9.7 Eos % (Auto) 8.3 H Baso % (Auto) 1.5 Lymph # (Auto) 1.9 [place] # (Auto) 0.5 Eos # (Auto) 0.5 H Baso # (Auto) 0.1 Abs Immat Gran (auto) 0.01 Absolute Neuts (auto) 2.5 Absolute Nucleated RBC 0.000 Nucleated RBC % (auto) 0.0 Anion Gap 11 L 11 L Estim Creat Clear Calc 113.3 130.0 Estimated GFR > 60 > 60 Random Glucose 113 130 H Calcium 9.0 8.2 L D Magnesium 2.1 1.7 Total Bilirubin 0.3 0.2 AST 37 H 35 H ALT 20 14 Alkaline Phosphatase 66 59 Total Protein 7.7 6.3 L Albumin 4.2 3.2 L Lipase 48 Beta HCG, Quant < 2 Urine Color Yellow Urine Appearance Clear Urine pH 7.0 Ur Specific [place] <= 1.005 Urine Protein Negative Urine Glucose (UA) Negative Urine Ketones Negative Urine Blood Negative Urine Nitrite Negative Ur Leukocyte Esterase Negative Ethyl Alcohol 153 Assessment and Plan Plan 34 yo female with past medical history of alcohol use disorder with a hx of withdrawal seizures. States that 3 days ago she had attempted to quit drinking cold turkey but experienced a seizure. She comes to the ED with a desire for inpatient support to withdraw. ETOH withdrawal with hx of seizures Seizure precautions Phenobarb protocol, initiated in the ED Addiction med consult appreciated IV fluids encourage oral intake Encourage cessation Mental health Continue home medications Tobacco use disorder, vape NRT buccal gum ordered DVT prophylaxis with Lovenox Full code Quality Stroke Does the patient have a stroke diagnosis?: No VTE Prior VTE?: No VTE Risk Level:: Medical - moderate - high VTE Device Contraindication: Treatment Not Indicated VTE Drug Contraindication: N/A - Med Ordered
--- NOTE | 2024-08-20 14:58 | PM.DS ---
DS: Providers Provider Date of Service: 08/20/24 Date of admission: 08/19/24 14:14 Date of discharge: 08/20/24 Primary care physician: Mary Serrano MD Consults: 08/19/24 14:13 Addiction Medicine Routine Consulting Provider: Addiction Covering Reason for consultation: ETOH 08/20/24 11:54 Addiction Medicine Routine Consulting Provider: Addiction Covering Reason for consultation: Etoh withdraw DS: Diagnosis Discharge Diagnosis (1) Alcohol withdrawal syndrome: Status: Acute (2) Alcohol withdrawal seizure: Status: Acute DS: Summary Hospital Course Hospital Course: 34 yo female with past medical history of alcohol use disorder with a hx of withdrawal seizures. States that 3 days ago she had attempted to quit drinking cold turkey but experienced what she believes to be a seizure- states she felt different and lowered herself down and then suddenly she came to - she thinks it was under 5 minutes. She endorses having auras historically which vary including a metallic taste and a kaleidoscope-like visual. She reports her last drink was this 9am (3 nips of Rell Beam) which she took with a rx. clonidine pill prior to coming in to the ED. She comes to the ED with a plan to withdraw inpatient. States she has contacts within the community who are willing to support rehabilitation however she must be outside of the acute withdrawal phase and any chance of seizing from said withdrawal. She has been drinking since 2019, increasingly getting worse over the last 2 years. Reports she drinks 2 sleeves of nips (spirits) daily, as well as intermittent cocaine use when offered or available, and vapes tobacco. Denies auras at present, has a baseline tremor present no additional shaking is reported, denies N/V/D, headache, anxiety, or depression (is sick of having nothing to live for but alcohol and wants to stop). ETOH withdrawal with hx of seizures Seizure precautions, no seizures during hospitalization Phenobarb protocol Seen and evaluated by addiction Medicine, has outpatient resources for help with alcohol cessation Treated with IV fluids Encouraged cessation Mental health Continue home medications Tobacco use disorder, vape. NRT Time Attestation Discharge Coordination Time (in mins): 32 Quality: Safe Use of Opioids Does Pt have an Active Cancer Diagnosis on the Problem List?: No Quality: Stroke Does the patient have a stroke diagnosis?: No Physical Exam Vital Signs: Vital Signs: Last Vital Signs Temp 97.6 F 08/20/24 08:34 Pulse 67 08/20/24 08:34 Resp 16 08/20/24 08:34 BP 105/62 08/20/24 08:34 Pulse Ox 99 08/20/24 08:34 O2 Del Method Room Air 08/20/24 08:34 BMI result Body Mass Index 26.3 Appearing in no acute distress head is normocephalic atraumatic eyes pupils are PERRLA sclera is anicteric mouth throat mucous membranes are intact and moist neck is supple no lymphadenopathy, no JVD noted lung sounds are clear to auscultation heart regular rate rhythm, clear S1, S2 positive bowel sounds, abdomen is soft, nontender neuro patient is alert x3, no focal deficits DS: Data Data Completed and Pending Labs on day of discharge: Laboratory Results - last 24 hr 08/20/24 04:20 WBC 5.5 RBC 4.13 L Hgb 10.1 L Hct 31.9 L MCV 77.2 L MCH 24.5 L MCHC 31.7 RDW 18.0 H Plt Count 234 MPV 9.6 Immature Gran % (Auto) 0.2 Neut % (Auto) 46.4 Lymph % (Auto) 33.9 [place] % (Auto) 9.7 Eos % (Auto) 8.3 H Baso % (Auto) 1.5 Lymph # (Auto) 1.9 [place] # (Auto) 0.5 Eos # (Auto) 0.5 H Baso # (Auto) 0.1 Abs Immat Gran (auto) 0.01 Absolute Neuts (auto) 2.5 Absolute Nucleated RBC 0.000 Nucleated RBC % (auto) 0.0 Sodium 136 Potassium 4.1 Chloride 106 Carbon Dioxide 23 Anion Gap 11 L BUN 10 Creatinine 0.68 Estim Creat Clear Calc 130.0 Estimated GFR > 60 Random Glucose 130 H Calcium 8.2 L D Magnesium 1.7 Total Bilirubin 0.2 AST 35 H ALT 14 Alkaline Phosphatase 59 Total Protein 6.3 L Albumin 3.2 L Discharge Plan Discharge Anticipated Discharge Date/Time: 08/20/24 14:56 Patient Disposition: Home, Self-Care Discharge Diagnosis: Alcohol abuse History of alcohol withdrawal seizure Referrals: Mary Serrano MD [Primary Care Provider] - 1 Week Discharge Medications: Continued clonidine HCl 0.1 mg tablet 0.1 mg PO DAILY acetaminophen 325 mg tablet 650 mg PO Q6H PRN (Reason: Pain) naltrexone 50 mg tablet 50 mg PO DAILY quetiapine 50 mg tablet 50 mg PO BEDTIME multivitamin Tablet 1 tab PO DAILY ascorbic acid (vitamin C) [Vitamin C] 500 mg Tablet 500 mg PO DAILY vitamin B complex Tablet 1 tab PO DAILY albuterol sulfate 90 mcg/actuation Hfa Aerosol Inhaler 2 puff INHALATION Q4-6H PRN (Reason: Respiratory Distress) Discharge Orders: Discharge Order (Routine); Ordered 08/20/24 Ordered By: Mandy Montes Diet: Advance to usual diet Activity on Discharge: As tolerated Stand Alone Forms: Patient Portal Discharge page Print Language: British Care Plan Goals: Do not drink alcohol, seek outpatient treatment for assistance with this Health Concerns: Alcohol abuse History of alcohol withdrawal seizure Plan of Treatment: Follow-up with primary care provider as needed Take all medications as prescribed Assessment: See discharge summary
--- NOTE | 2024-08-20 15:04 | MHC.CM.PN ---
Patient has been medically cleared for dc to home today, self care.
--- NOTE | 2024-08-20 15:49 | MHC.RECOVRN ---
AUDIT-C Brief Intervention Pt had positive screen for unhealthy alcohol use on admission, subsequently met with t/w to discuss alcohol use and recovery supports/options. This travel writer met with patient to discuss current alcohol use and concerns related to increased risk of alcohol related problems.? Pt reports alcohol use, 20 nips bourbon daily x 1.5 months. Discussed how alcohol use has impacted health, including negative impact on overall physical wellbeing and mental health. Withdrawal History: reports hx withdrawal seizures Treatment History: [facility] x 7, [facility] x 2, [facility], [facility] Supports:?boyfriend Discussed risk reduction strategies including drinking below the recommended limit. Provided pt with written resources including information on inpatient and outpatient treatment, CIRO, harm reduction, and recovery coaching. Pt plans to attend an AAb meeting this evening and make contact with [facility] to attend their PHP program. Pt would like to attend PHP as soon as possible. Pt also plans to present to the [facility] for [facility]. Pt provided with t/w contact information if questions or concerns arise. Denies other questions or concerns at this time.?
== END 2024-08-20 15:15 | disposition home or self-care (01) | DRG 775 ==
LOC: HO.ED 12:21 → HO.EDOVER 14:24 → HO.IMC 08-20 14:38 → HO.EDOVER 08-20 15:04
PROVIDERS: Admitting Provider Nurse Practitioner Acute Care; Emergency Provider Emergency Medicine; PCP Internal Medicine; Visit Provider Nurse Practitioner Acute Care
DX: F10.139 Alcohol abuse with withdrawal, unspecified (principal); F17.210 Nicotine dependence, cigarettes, uncomplicated; Y90.6 Blood alcohol level of 120-199 mg/100 ml; Z71.6 Tobacco abuse counseling; Z79.899 Other long term (current) drug therapy
CPT/HCPCS: 36415; 80053; 80307; 81003; 83690; 83735; 84702; 85025; 99285; J1650; J2560; J7120

== ENCOUNTER → 2024-08-19 14:14 | Outpatient (BNV) | payer OTHER, SELFPAY | PROVIDERS: Admitting Provider Nurse Practitioner Acute Care; Emergency Provider Emergency Medicine; PCP Internal Medicine; Visit Provider Nurse Practitioner Acute Care | DX: R56.9 Unspecified convulsions (principal); F10.939 Alcohol use, unspecified with withdrawal, unspecified | CPT/HCPCS: 99223; 99239 ==

== ENCOUNTER → 2024-12-01 16:11 | Outpatient (BNVA) | payer OTHER, SELFPAY | PROVIDERS: PCP Internal Medicine; Visit Provider Internal Medicine | DX: Z51.81 Encounter for therapeutic drug level monitoring (principal); Z79.899 Other long term (current) drug therapy | CPT/HCPCS: 80307 ==